=== PATIENT | female | born 1990 | race Caucasian/White ===

== ENCOUNTER → 2021-10-04 12:29 | Outpatient (CLI) | payer OTHER, MEDICAID, SELFPAY ==
[2021-10-04 12:58] LABS: Appearance Urine UA CLOUDY; Bilirubin Urine UA NEGATIVE (NEGATIVE); Color Urine UA YELLOW; Glucose Urine UA NEGATIVE (Negative); Ketones Urine UA NEGATIVE (NEGATIVE); Leukocyte Esterase Urine UA NEGATIVE (NEGATIVE); Nitrite Urine UA NEGATIVE (Negative); Occult Blood Urine UA NEGATIVE (Negative); Protein Urine UA 1+ (Negative); Specific Gravity Urine UA 1.025 (1.000-1.035); Urobilinogen Urine UA 0.2 E.U./dL (0.2)
[2021-10-04 13:00] LABS: Add Manual Diff / Slide Review NO; Basophils Absolute Auto 100 /uL (0-100); Basophils Percent Auto 0.6 % (0-2); Eosinophils Absolute Auto 100 /uL (0-450); Eosinophils Percent Auto 0.7 % (2-4); Hematocrit 35.1 % (36-46); Lymphocytes Absolute Auto 1600 /uL (1100-4500); Lymphocytes Percent Auto 13.5 % (25-40); Mean Corpuscular HGB Conc 34.1 % (30-36); Mean Corpuscular Hemoglobin 28.7 PG (26-34); Mean Corpuscular Volume 84.1 fL (80-100); Monocytes Absolute Auto 500 /uL (0-900); Monocytes Percent Auto 4.7 % (3-14); Neutrophils Absolute Auto 9300 /uL (1500-7000); Neutrophils Percent Auto 80.5 % (50-75); Platelet Count 197 X10^3/uL (150-400); Red Blood Cell Count 4.17 X10^6/uL (4.0-5.2); Red Cell Distribution Width 15.9 % (11.6-14.8); White Blood Cell Count 11.5 X10^3/uL (4.5-11.0); pH Urine UA 6.5 (4.5-8.0)
[2021-10-04 13:58] LABS: Hepatitis B Surface Antigen NEGATIVE s/c (NEGATIVE); Rubella Antibody IgG 41.8 IU/mL (>15)
[2021-10-04 14:15] LABS: HIV 1 & 2 Ab/Ag 4th Gen Combo NEGATIVE (NEGATIVE); Hep C Virus Ab w/Reflex Quant NEGATIVE s/c (NEGATIVE)
[2021-10-05 06:24] LABS: RPR Screen Non Reactive (Non Reactive)
[2021-10-05 07:36] LABS: Varicella IgG Antibody 532 index (Immune >165)
== END ==
PROVIDERS: PCP Nurse Practitioner Family; Referring Provider Specialist; Visit Provider Specialist
DX: Z34.80 Encounter for supervision of other normal pregnancy, unspecified trimester (principal)
CPT/HCPCS: 36415; 80055; 81003; 86787; 86803; 86850; 86900; 86901; 87389

== ENCOUNTER → 2021-11-22 12:19 | Outpatient (CLI) | payer OTHER, MEDICAID, SELFPAY ==
--- NOTE | 2021-11-22 12:20 | DI.US.S_ITS ---
PROCEDURE: US OB >= 14 WEEKS FETUS INDICATIONS: 20 WEEK ANATOMY SCAN OUTSIDE/PRIOR DATING DATA: Last menstrual period (LMP): 06/13/2021 LMP-based estimated date of delivery (AMANDA): 03/20/2022 First dating scan (date and location): 10/04/2021 Estimated date of delivery (AMANDA) from first dating scan: 03/15/2022 The calculations are made using the ultrasound AMANDA of 03/15/2022 TECHNIQUE: Real-time scanning was performed of the fetuses, with image documentation and biometric measurements. Endovaginal scanning: Not performed. COMPARISON: [facility], US, US OB >= 14 WEEKS FETUS, 11/08/2021, 14:37. [facility], US, US OB <= 14 WEEKS FETUS, 10/04/2021, 13:22. FINDINGS: General: An intrauterine twin is present. There appears to be 2 placentas, but findings are not well evaluated due to gestational age and maternal body habitus. Recommend correlation with findings from 1st trimester ultrasounds if available. Maternal cervical canal: 5.5 cm long. Normal lower limit is 2.5 cm. FETUS A: Fetus is located on the maternal right side, and is in vertex presentation. Largest amniotic fluid pocket: 5.0 cm; normal range is 2-8 cm. Placental position is posterior, without previa. heart rate: 136 beats per minute. biometrics: Biparietal diameter: 5.8 cm, 23 weeks 4 days Head circumference: 21.8 cm, 23 weeks 6 days Abdominal circumference: 20 cm, 24 weeks 4 days Femur length: 4.4 cm, 24 weeks 3 days Clinically estimated gestational age: 23 weeks 6 days Composite gestational age from present scan: 24 weeks 1 day Estimated weight and percentile: 695 grams, 69th percentile Anatomic survey: Neuro: Ventricles are normal at less than 10 mm. Cisterna magna is normal at 3-11 mm. Cerebellum is normal in size and morphology. Nuchal skin fold: Normal at less than 6 mm between 14 and 21 weeks gestational age. Face: Nose and lips, facial profile are normal. Spine: No evidence for spina bifida. Heart: 4 chambered heart is present, with normal ventricular outflow tracts. Diaphragm: Diaphragm is intact. Stomach: Left-sided stomach is present. Kidneys: No hydronephrosis. Normal ranges are less than 5 mm in 2nd trimester, less than 7 mm in 3rd trimester. Cord: 3 vessel cord has orthotopic insertion. Bladder: Normal in size. Extremities: All 4 extremities are visualized. FETUS B: Fetus is located on the maternal left side, and is in variable presentation. Largest amniotic fluid pocket: 5.5 cm; normal range is 2-8 cm. Placental position is likely fundal, without previa. heart rate: 140 beats per minute. biometrics: Biparietal diameter: 5.5 cm, 22 weeks 5 days Head circumference: 20.5 cm, 22 weeks 4 days Abdominal circumference: 19.7 cm, 24 weeks 3 days Femur length: 4.3 cm, 23 weeks 6 days Clinically estimated gestational age: 23 weeks 6 days Composite gestational age from present scan: 23 weeks 3 days Estimated weight and percentile: 645 grams, 45th percentile Anatomic survey: Neuro: Ventricles are normal at less than 10 mm. Cisterna magna is normal at 3-11 mm. Cerebellum is normal in size and morphology. Nuchal skin fold: Normal at less than 6 mm between 14 and 21 weeks gestational age. Face: facial profile, nose/lips, and orbits are not well visualized. Spine: No evidence for spina bifida. Heart: Four-chamber heart and ventricular outflow tracts are not well visualized. Diaphragm: Diaphragm is intact. Stomach: Left-sided stomach is present. Kidneys: No hydronephrosis. Normal ranges are less than 5 mm in 2nd trimester, less than 7 mm in 3rd trimester. Cord: 3 vessel cord has orthotopic insertion. Bladder: Normal in size. Extremities: Bilateral lower extremities are not well visualized. Upper extremities appear normal. IMPRESSION: 1. Intrauterine twin . Chorionicity is not well evaluated due to gestational age, but dichorionic diamniotic gestation is suspected. Recommend correlation with first-trimester ultrasound results if available. 2. Anatomic survey for fetus A (maternal right) is within normal limits. 3. Incomplete anatomic survey for fetus B (maternal left). facial profile, nose/lips, heart views, and lower extremities are not well visualized. Recommend short-term follow-up exam. We strive to produce accurate, complete, and clear reports of imaging services. To assist us in improving patient care, this report was composed using standard report templates and voice recognition software. Therefore, it may contain abnormal punctuation, insertions and/or omissions. Occasional wrong-word or sound-alike substitutions may occur. Though we review the report and make efforts to correct it, we do recommend that the report be read carefully in proper context to recognize any text inaccuracies. Dictated by: Edgar Seay M.D. on 11/22/2021 at 16:23 Approved by: Edgar Seay M.D. on 11/22/2021 at 16:35
== END ==
PROVIDERS: PCP Nurse Practitioner Family; Referring Provider Specialist; Visit Provider Specialist
DX: O30.002 Twin pregnancy, unspecified number of placenta and unspecified number of amniotic sacs, second trimester (principal); Z3A.24 24 weeks gestation of pregnancy
CPT/HCPCS: 76811

== ENCOUNTER → 2021-12-17 12:12 | Outpatient (CLI) | payer OTHER, MEDICAID, SELFPAY ==
--- NOTE | 2021-12-17 | DI.US.S_ITS ---
PROCEDURE: US OB FOLLOW UP INDICATIONS: FOLLOW UP ANATOMY - TWINS OUTSIDE/PRIOR DATING DATA: Last menstrual period (LMP): 06/13/2021 LMP-based estimated date of delivery (AMANDA): 03/17/2022 First dating scan (date and location): 10/04/2021 Estimated date of delivery (AMANDA) from first dating scan: 03/15/2022. TECHNIQUE: Real-time scanning was performed of the fetuses, with image documentation and biometric measurements. Endovaginal scanning: Not indicated. COMPARISON: [facility], OB >= 14 WEEKS FETUS, 11/22/2021, 14:06. FINDINGS: General: An intrauterine likely dichorionic-diamniotic twin is present. FETUS A: Fetus is located on the maternal right side, and is in vertex presentation. Largest amniotic fluid pocket: 5 cm, normal is 2-8 cm. Placental position is posterior, without previa. heart rate: 132 beats per minute. biometrics: Biparietal diameter: 6.9 cm, 27 weeks, 5 days Head circumference: 26.1 cm, 28 weeks, 3 days Abdominal circumference: 22.4 cm , 26 weeks, 6 days Femur length: 5.1 cm, 27 weeks, 3 days Clinically estimated gestational age: 27 weeks, 3 days Composite gestational age from present scan: 27 weeks, 4 days Estimated weight and percentile: 1049 g, 31% Four-chamber heart, stomach, bilateral kidneys and urinary bladder are visualized and are within normal limits. FETUS B: Fetus is located on the maternal left side, and is in transverse presentation. Largest amniotic fluid pocket: 3.9 cm, normal is 2-8 cm. Placental position is fundal without previa. heart rate: 132 beats per minute. biometrics: Biparietal diameter: 7.0 cm, 28 weeks, 0 day Head circumference: 25.6 cm, 27 weeks, 6 days Abdominal circumference: 23.3 cm, 27 weeks, 5 days Femur length: 5.1 cm, 27 weeks, 3 days Clinically estimated gestational age: 27 weeks, 3 days Composite gestational age from present scan: 27 weeks, 5 days Estimated weight and percentile: 1105 g, 46%. Four-chamber heart, outflow tracts, stomach, bilateral kidneys, urinary bladder, and bilateral lower extremities are visualized and are within normal limits. facial profile is still not well visualized on the current study. IMPRESSION: 1. Twin live intrauterine gestation as described in detail above. Normal growth. Normal amount of amniotic fluid. 2. Additional anatomic survey for fetus B shows normal four-chamber heart and outflow tract on the current study. Bilateral lower extremities are also visualized and are within normal limits. facial profile is still not well seen on the current study due to patient's body habitus and position. We strive to produce accurate, complete, and clear reports of imaging services. To assist us in improving patient care, this report was composed using standard report templates and voice recognition software. Therefore, it may contain abnormal punctuation, insertions and/or omissions. Occasional wrong-word or sound-alike substitutions may occur. Though we review the report and make efforts to correct it, we do recommend that the report be read carefully in proper context to recognize any text inaccuracies. Dictated by: Mekhi Pinon M.D. on 12/19/2021 at 15:09 Approved by: Mekhi Pinon M.D. on 12/19/2021 at 15:19
[2021-12-17 13:39] LABS: Hemoglobin 11.1 g/dL (12.0-16.0)
[2021-12-17 13:55] LABS: GTT (PREG) 1 Hour PP 50gm Dose 135 mg/dL (76-139)
== END ==
PROVIDERS: PCP Nurse Practitioner Family; Referring Provider Specialist; Visit Provider Specialist
DX: O30.092 Twin pregnancy, unable to determine number of placenta and number of amniotic sacs, second trimester (principal); O09.92 Supervision of high risk pregnancy, unspecified, second trimester; Z36.2 Encounter for other antenatal screening follow-up; Z3A.27 27 weeks gestation of pregnancy
CPT/HCPCS: 36415; 76812; 76816; 82950; 85014; 85018

== ENCOUNTER → 2022-02-11 13:52 | Outpatient (CLI) | payer OTHER, MEDICAID, SELFPAY ==
[2022-02-11 19:48] LABS: Creatinine Urine Random 197.4 mg/dL; Protein (Total) Urine Random 17 mg/dL (0-12); Protein Creatinine Ratio Urine 0.08 GRAM/24H
[2022-02-12 13:32] LABS: Strep Grp B PCR NEG for Grp B Strep
== END ==
PROVIDERS: PCP Nurse Practitioner Family; Visit Provider Obstetrics & Gynecology
DX: O26.899 Other specified pregnancy related conditions, unspecified trimester (principal); O30.009 Twin pregnancy, unspecified number of placenta and unspecified number of amniotic sacs, unspecified trimester; R51.9 Headache, unspecified
CPT/HCPCS: 82570; 84156; 87653

== ENCOUNTER → 2022-02-11 14:16 | Outpatient (CLI) | payer OTHER, MEDICAID, SELFPAY ==
--- NOTE | 2022-02-11 14:18 | DI.US.S_ITS ---
PROCEDURE: US OB LIMITED INDICATIONS: twin growth US OUTSIDE/PRIOR DATING DATA: Last menstrual period (LMP): 06/13/2021 LMP-based estimated date of delivery (AMANDA): 03/20/2022. First dating scan (date and location): 10/04/2021. Estimated date of delivery (AMANDA) from first dating scan: 03/15/2022. The calculations are made using the ultrasound AMANDA of 03/15/2022. TECHNIQUE: Real-time scanning was performed of the fetuses, with image documentation and biometric measurements. COMPARISON: [facility], US, OB FOLLOW UP, 12/17/2021, 15:02. FINDINGS: General: An intrauterine dichorionic-diamniotic twin is present, as evidenced by separate placentas, differing sexes, or an intervening membrane of greater than 2 mm. Maternal cervical canal: Not well seen. FETUS A: Fetus is located on the maternal right side, and is in vertex presentation. Largest amniotic fluid pocket: 5.4 cm, normal is 2-8 cm. Placental position is posterior , without previa. heart rate: 168 beats per minute. biometrics: Biparietal diameter: 34 weeks 1 days Head circumference: 35 weeks 4 days Abdominal circumference: 39 weeks 2 days Femur length: 36 weeks 2 days Clinically estimated gestational age: 35 weeks 3 days Composite gestational age from present scan: 36 weeks 2 days Estimated weight and percentile: 3241 g; 95th percentile FETUS B: Fetus is located on the maternal left side, and is in breech presentation. Largest amniotic fluid pocket: 6.5 cm, normal is 2-8 cm. Placental position is fundal, without previa. heart rate: 140 beats per minute. biometrics: Biparietal diameter: 33 weeks 5 days Head circumference: 35 weeks 5 days Abdominal circumference: 36 weeks 6 days Femur length: 35 weeks 4 days Clinically estimated gestational age: 35 weeks 3 days Composite gestational age from present scan: 35 weeks 3 days Estimated weight and percentile: 2830 g; 67th percentile IMPRESSION: 1. Living twin dichorionic diamniotic redemonstrated. 2. Growth for fetus A is greater than expected with estimated weight 95th percentile and normal growth for fetus B with estimated weight of 67th percentile. Developing macrosomia for fetus A cannot be excluded and close clinical correlation is recommended. We strive to produce accurate, complete, and clear reports of imaging services. To assist us in improving patient care, this report was composed using standard report templates and voice recognition software. Therefore, it may contain abnormal punctuation, insertions and/or omissions. Occasional wrong-word or sound-alike substitutions may occur. Though we review the report and make efforts to correct it, we do recommend that the report be read carefully in proper context to recognize any text inaccuracies. Dictated by: Sean LIMA Interpreted: Helio Mendoza MD on 02/12/2022 at 15:23 Transcribed by: TRISTA on 02/12/2022 at 15:36 Approved by: Helio Mendoza M.D. on 02/12/2022 at 18:33
[2022-02-11 15:17] LABS: Hematocrit 30.1 % (36-46); Hemoglobin 9.9 g/dL (12.0-16.0); Mean Corpuscular Hemoglobin 24.7 PG (26-34); Platelet Count 167 X10^3/uL (150-400); Red Blood Cell Count 4.01 X10^6/uL (4.0-5.2); Red Cell Distribution Width 17.2 % (11.6-14.8); White Blood Cell Count 8.5 X10^3/uL (4.5-11.0)
[2022-02-11 15:39] LABS: Alanine Aminotransferase 13 IU/L (<35); Albumin 3.2 g/dL (3.5-5.0); Albumin Globulin Ratio 1.1 (1.0-2.8); Alkaline Phosphatase 166 U/L (38-126); Aspartate Aminotransferase 17 IU/L (14-36); BUN Creatinine Ratio 14.8 (6-22); Bilirubin Total 0.2 mg/dL (0.2-1.3); Blood Urea Nitrogen 8 mg/dL (7-17); Calcium 8.7 mg/dL (8.4-10.2); Carbon Dioxide 22 mmol/L (22-32); Chloride 107 mmol/L (98-107); Estimated Glomerular Filt Rate > 60 mL/min (>60); Glucose 118 mg/dL (70-100); HEMOLYSIS < 15 (0-50); Potassium 3.8 mmol/L (3.4-5.1); Sodium 135 mmol/L (137-145); Total Protein 6.2 g/dL (6.3-8.2); Uric Acid 5.5 mg/dL (2.5-6.2)
== END ==
PROVIDERS: PCP Nurse Practitioner Family; Referring Provider Obstetrics & Gynecology; Visit Provider Obstetrics & Gynecology
DX: O30.043 Twin pregnancy, dichorionic/diamniotic, third trimester (principal); O26.893 Other specified pregnancy related conditions, third trimester; R51.9 Headache, unspecified; Z3A.36 36 weeks gestation of pregnancy
CPT/HCPCS: 36415; 76815; 80053; 84550; 85027

== ENCOUNTER 2022-02-11 15:24 | Outpatient (CLI) | payer OTHER, MEDICAID, SELFPAY ==
--- NOTE | 2022-02-11 20:39 | PM.OBTRLD ---
Visit Information Visit Information Date of evaluation: 02/11/22 Primary OB Provider: Tatyana Sullivan On-call OB Provider: Tatyana Sullivan Reason for Evaluation: Yes non-stress test Comments/Additional reasons for admission: NSTx2 for twin gestation at 34 weeks. Unclear chorionicity, mono chorionic, diamniotic verses dichorionic, diamniotic. evaluate for contractions as well. Cramping, episodes of contractions past 2 days, feels increased contractions today. BP normal for her in office 132/84. Significant pedal edema in the office. Sent for preeclamptic labs prior to her scheduled NST. [facility] Medical History (Updated 01/28/22 @ 21:11 by Ttayana Sullivan MD) Anxiety Chronic back pain Depression History of bipolar disorder History of methamphetamine abuse Migraines PTSD (post-traumatic stress disorder) Twin , mate liveborn Surgical History (Updated 11/07/21 @ 22:21 by Raissa العلي) Anesthesia History of oral surgery (~10/26/15) Family History (Updated 11/07/21 @ 22:23 by Raissa العلي) Father Diabetes mellitus Hyperlipidemia Cancer Mental health problem Brother Cerebral palsy Social History (Updated 09/30/21 @ 07:17 by Yulissa Aldrich RN) marital status: unmarried,single number of children: 3 household members: significant other and children housing: other (RV ) pets and animals: Yes (1 dog) education level: college occupational status: unemployed current occupational exposures/hazards: No nelsy/yarsanism: Jainism special nelsy needs: No seatbelt use: always water heater temp set < 120 deg: No (unsure, has to let water heat up in the RV ) working smoke detector in home: Yes fire extinguisher in home: Yes carbon monox detector in home: Yes firearms in home: Yes (2, unloaded and locked) firearms unloaded and locked: Yes do you feel safe at home: Yes Smoking Status: Current every day smoker (cut down to 1-2 day) Tobacco: How many years used: 10 quit status: considering quitting second hand exposure: Yes alcohol intake: former substance use type: marijuana (eat CBD/THC edibles ) and methamphetamine (recovering meth user, quit 4yrs ago) during the past year weight has: increased > 10 lbs (25-30 lbs) well-balanced diet: about half the time daily servings fruits/ve-1 caffeine: Yes (aware of 200mg daily limit) eating out: rarely or never Type(s) of exercise: walking (trying to walk more) and sedentary lifestyle frequency: 1-2 times per week Evaluation Evaluation Comments: Baby A FHR baseline 135-145, moderate variability, positive accelerations, no decelerations. reactive NST Baby B FHR baseline 135 moderate variability, positive accelerations, no decelerations. Reactive NST toco: No contractions Diagnosis, Plan/Disposition Plan/Disposition Plan: 34 weeks, twin gestation, probable monochorionic, diamniotic versus dichorionic, diamniotic Reactive NST x2, reassuring testing Growth ultrasound today pending Mild elevated BP, without diagnosis of hypertension. Suspect developing gestational hypertension however. Urine protein / creatinine ratio pending. Preeclamptic labs otherwise normal. Hemoglobin 9.9, advised add Additional iron daily. Discharge home to continue with weekly testing, travels by [place] weekly. Advised increased sitting, rest off feet. Will move her up to 37 weeks. OB Disposition: home
== END 2022-02-11 16:52 | disposition home or self-care (01) ==
LOC: LABOR 15:43 → OB 02-13 07:23
PROVIDERS: PCP Nurse Practitioner Family; Referring Provider Obstetrics & Gynecology; Visit Provider Obstetrics & Gynecology
DX: O30.043 Twin pregnancy, dichorionic/diamniotic, third trimester (principal); O26.893 Other specified pregnancy related conditions, third trimester; R03.0 Elevated blood-pressure reading, without diagnosis of hypertension; R51.9 Headache, unspecified; Z3A.36 36 weeks gestation of pregnancy; Z3A.35 35 weeks gestation of pregnancy
CPT/HCPCS: 36415; 59025; 76815; 80053; 82570; 84156; 84550; 85027; 87653; G0378; G0379

== ENCOUNTER 2022-02-18 13:58 | Observation (INO) | payer OTHER, MEDICAID, SELFPAY ==
--- NOTE | 2022-02-18 15:24 | DI.US.S_ITS ---
PROCEDURE: US OB LIMITED INDICATIONS: ALLEN OUTSIDE/PRIOR DATING DATA: Last menstrual period (LMP): 06/13/21. LMP-based estimated date of delivery (AMANDA): 03/20/22. First dating scan (date and location): 10/04/21, outside institution. Estimated date of delivery (AMANDA) from first dating scan: 03/15/22. The calculations are made using the established AMANDA of 03/15/22. TECHNIQUE: Real-time scanning was performed of the fetuses, with image documentation Endovaginal scanning: Not performed COMPARISON: [facility], US OB LIMITED, 02/11/2022, 14:49. FINDINGS: Challenging exam secondary to maternal body habitus. General: An intrauterine dichorionic-diamniotic twin is present, as evidenced by separate placentas, differing sexes, or an intervening membrane of greater than 2 mm. Composite amniotic fluid index: Possibly 19.1 cm. Maternal cervical canal: Not well seen due to shadowing from the head FETUS A: Fetus is located on the maternal right side, and is in cephalic presentation. Largest amniotic fluid pocket: 4.0 cm, normal is 2-8 cm. Placental position is not well seen heart rate: 127 beats per minute. FETUS B: Fetus is located on the maternal left side, and is in oblique transverse presentation. Largest amniotic fluid pocket: 5.1 cm, normal is 2-8 cm. Placental position is fundal and posterior, without previa. heart rate: 145 beats per minute. IMPRESSION: 1. Limited study secondary to technical challenges. 2. Viable twin . 3. Grossly normal amount of amniotic fluid. We strive to produce accurate, complete, and clear reports of imaging services. To assist us in improving patient care, this report was composed using standard report templates and voice recognition software. Therefore, it may contain abnormal punctuation, insertions and/or omissions. Occasional wrong-word or sound-alike substitutions may occur. Though we review the report and make efforts to correct it, we do recommend that the report be read carefully in proper context to recognize any text inaccuracies. Dictated by: Maine Goins M.D. on 02/18/2022 at 17:11 Approved by: Maine Goins M.D. on 02/18/2022 at 17:18
--- NOTE | 2022-02-18 15:28 | DI.US.S_ITS ---
PROCEDURE: US PERIPH VENOUS LOW EXTREM RT INDICATIONS: r/o clot in right leg TECHNIQUE: Real-time imaging, as well as color and pulse Doppler interrogation, were performed of the lower extremity deep veins from the inguinal ligament to the popliteal fossa. COMPARISON: None. FINDINGS: The common femoral, femoral and popliteal veins are normally compressible, and free of intraluminal thrombus. Color and pulse Doppler demonstrate normal phasic intraluminal flow. There is normal augmentation response to distal compression maneuver. IMPRESSION: No sonographic evidence of DVT. Dictated by: Mariusz Peacock M.D. on 02/18/2022 at 16:33 Approved by: Mariusz Peacock M.D. on 02/18/2022 at 16:33
[2022-02-18 15:48] LABS: Hematocrit 28.8 % (36-46); Hemoglobin 9.5 g/dL (12.0-16.0); Mean Corpuscular HGB Conc 32.9 % (30-36); Mean Corpuscular Hemoglobin 24.6 PG (26-34); Mean Corpuscular Volume 74.5 fL (80-100); Platelet Count 157 X10^3/uL (150-400); Red Blood Cell Count 3.86 X10^6/uL (4.0-5.2); Red Cell Distribution Width 17.4 % (11.6-14.8); White Blood Cell Count 8.2 X10^3/uL (4.5-11.0)
[2022-02-18 16:08] LABS: Alanine Aminotransferase 13 IU/L (<35); Albumin 3.1 g/dL (3.5-5.0); Alkaline Phosphatase 166 U/L (38-126); Aspartate Aminotransferase 17 IU/L (14-36); BUN Creatinine Ratio 12.5 (6-22); Bilirubin Total 0.3 mg/dL (0.2-1.3); Blood Urea Nitrogen 7 mg/dL (7-17); Calcium 8.5 mg/dL (8.4-10.2); Carbon Dioxide 24 mmol/L (22-32); Chloride 108 mmol/L (98-107); Estimated Glomerular Filt Rate > 60 mL/min (>60); Globulin 3.2 g/dL (1.7-4.1); Glucose 86 mg/dL (70-100); HEMOLYSIS < 15 (0-50); Potassium 3.9 mmol/L (3.4-5.1); Sodium 137 mmol/L (137-145); Total Protein 6.3 g/dL (6.3-8.2)
== END 2022-02-18 16:26 | disposition home or self-care (01) ==
PROVIDERS: Admitting Provider Obstetrics & Gynecology; PCP Nurse Practitioner Family; Referring Provider Obstetrics & Gynecology; Visit Provider Obstetrics & Gynecology
DX: O30.003 Twin pregnancy, unspecified number of placenta and unspecified number of amniotic sacs, third trimester (principal); O13.3 Gestational [pregnancy-induced] hypertension without significant proteinuria, third trimester; O99.213 Obesity complicating pregnancy, third trimester; O12.03 Gestational edema, third trimester; E66.9 Obesity, unspecified; Z3A.35 35 weeks gestation of pregnancy
CPT/HCPCS: 59025; 76815; 80053; 82570; 84156; 85027; 93971; G0378; G0379

== ENCOUNTER → 2022-02-18 14:05 | Outpatient (CLI) | payer OTHER, MEDICAID, SELFPAY ==
[2022-02-18 17:02] LABS: Creatinine Urine Random 49.5 mg/dL; Protein (Total) Urine Random 13 mg/dL (0-12); Protein Creatinine Ratio Urine 0.26 GRAM/24H
== END ==
PROVIDERS: PCP Nurse Practitioner Family; Visit Provider Obstetrics & Gynecology
DX: O30.003 Twin pregnancy, unspecified number of placenta and unspecified number of amniotic sacs, third trimester (principal); O16.9 Unspecified maternal hypertension, unspecified trimester
CPT/HCPCS: 82570; 84156

== ENCOUNTER 2022-02-26 10:42 | Inpatient (IN) | payer OTHER, MEDICAID, SELFPAY ==
--- NOTE | 2022-02-26 | PATH_ITS ---
[facility] Accession Number: [id number] . 01 Material submitted: . PART A: fallopian tube - SEGMENTS OF BOTH FALLOPIAN TUBES PART B: placenta - PLACENTAS . 01 Clinical history: . PLACENTA FROM TWINS, BABY A HAS 1 CLAMP BABY B HAS 2 CLAMPS ON CORD . 01 Diagnosis: A. Bilateral Fallopian Tubes, Bilateral Tubal Ligation: Two complete cross-sections of fallopian tube. No evidence of neoplasm. . B. Placenta: Fused diamnionic-monochorionic twin placenta (1059 grams trimmed) with the following: . Twin A: Three vessel umbilical cord with no evidence of funisitis. membranes with scattered meconium-laden macrophages; no evidence of chorioamnionitis. Villous maturity appropriate for term gestation. . Twin B: Three vessel umbilical cord with no evidence of funisitis. membranes with scattered meconium-laden macrophages; no evidence of chorioamnionitis. Villous maturity appropriate for term gestation. [facility] 03/03/2022 1624 Local . 01 Electronically signed: . Compa Dean MD, PhD, Pathologist NPI- [id number] . 01 Gross description: . A. Received in formalin labeled with the patient's name and fallopian tube segments and consists of two penaloza, tubular, soft tissue fragments. The first measures 1.3 cm in length and 0.6 cm in diameter, has smooth penaloza serosa with no cystic structures identified, and the external surface is differentially inked blue. The second fragment measures 1.1 cm in length and 0.5 cm in diameter, and has smooth serosa with no cystic structures identified. Both fragments are serially sectioned to reveal an unremarkable stellate lumen. The specimen is submitted entirely in cassette A1. B. Received in formalin labeled with the patient's name and twin placenta with two cords, and consists of a partially fused twin placenta weighing 1216 grams (untrimmed weight), and measuring 28.2 x 17.5 x 3.4 cm. The dividing membranes are located diagonally approximately 6 cm on to the surface of side B. There is a single attached plastic clamp designating umbilical cord A, and two attached plastic clamps designating umbilical cord B per the requisition. The fused twin placenta has an ovoid appearance and cord A is located 2.2 cm from the nearest margin. Cord A in white measures 28.2 cm in length and has an average diameter of 1.1 cm, and is penaloza-white with a normal leftward coil, with an index of two twists per 5 cm. Cord A is sectioned and has trivascular architecture on cut surfaces. The external membranes surrounding side A are penaloza and translucent with no areas of thickening identified, and are ruptured 5.1 cm from the nearest margin. The dividing membranes are penaloza and translucent with no areas of thickening. Umbilical cord B measures 3.4 cm from the nearest placental edge, measures 24.1 cm in length and 1 cm in average diameter. The cord is penaloza-white and has a normal leftward coil with 1.5 twists per 5 cm. Sectioning the cord reveals trivascular architecture. The membranes for side B are penaloza and translucent and diffusely ruptured at the margins. No areas of thickening are identified. All external membranes insert at the placental margin. The placenta minus the external membranes and umbilical cord weighs 1059 grams. The surfaces are blue-guerrero with few small vessels (0.2 cm in greatest diameter) and appear to cross the dividing membrane. Multiple pale areas are located on the central surface of placenta A occupying approximately 10% of the surface, while the surface of placenta B has no areas of discoloration. The entire maternal surface is complete, dark red, and lobulated with areas of penaloza, firm discoloration located centrally on placenta A and occupying 10% of the maternal surface, and located at the fusion point between the two placentas. Placenta B has no areas of discoloration on the maternal surface. Sectioning reveals a dark red, spongy cut surface with penaloza discoloration located only within the area of fusion between the two placentas. No additional discoloration or lesions are identified. Lathe Mechanic sections are submitted as follows: B1: Dividing membrane with T zone. B2: Twin A cord. B3: Twin A membrane roll. B4: Twin A full thickness central section to include and maternal surfaces colorations. B5: Twin B umbilical cord. B6: Twin B membrane roll. B7: Twin B full thickness composite section. B8: Full thickness section from area of fused discs. ([id number]) /ELINA 02/27/2022 1907 Local . 01 Pathologist provided ICD-10: Z30.2, O30.009 . 01 CPT . 566217, [id number] Specimen Comment: A courtesy copy of this report has been sent to [facility] Pathology Performed at: 01 [facility] [address], [place], [place] [id number] MD Juan Esqueda MD Phone: [phone]
[2022-02-26 10:47] VITALS: BP 151/68
--- NOTE | 2022-02-26 11:13 | SUR.OPER ---
Supine on Padded OR bed, head on pillow, safety belt at thigh, arms secured on padded arm boards at <90 degrees abduction. Bump under right buttock. Legs uncrossed with pillow under knees, gel pad to heels, tape over blanket to lower legs.
[2022-02-26 11:23] LABS: Add Manual Diff / Slide Review NO; Basophils Absolute Auto 100 /uL (0-100); Basophils Percent Auto 0.9 % (0-2); Eosinophils Absolute Auto 100 /uL (0-450); Eosinophils Percent Auto 0.8 % (2-4); Lymphocytes Absolute Auto 1300 /uL (1100-4500); Lymphocytes Percent Auto 13.5 % (25-40); Mean Corpuscular HGB Conc 32.2 % (30-36); Mean Corpuscular Volume 74.5 fL (80-100); Monocytes Absolute Auto 600 /uL (0-900); Monocytes Percent Auto 5.9 % (3-14); Neutrophils Absolute Auto 7900 /uL (1500-7000); Neutrophils Percent Auto 78.9 % (50-75); Platelet Count 173 X10^3/uL (150-400); Red Blood Cell Count 4.16 X10^6/uL (4.0-5.2); Red Cell Distribution Width 18.2 % (11.6-14.8)
[2022-02-26 11:29] LABS: Aspartate Aminotransferase 18 IU/L (14-36); BUN Creatinine Ratio 11.9 (6-22); Blood Urea Nitrogen 7 mg/dL (7-17); Estimated Glomerular Filt Rate > 60 mL/min (>60); Uric Acid 5.9 mg/dL (2.5-6.2)
--- NOTE | 2022-02-26 11:34 | P.HPOB_ITS ---
OB HPI Date/Time Date of admission: 02/26/22 Date Patient Seen: 02/26/22 Time Patient Seen: 11:20 History of Present Condition Chief complaint: : 3 Para: 3 Estimated Date of Delivery: 03/20/22 Estimated Gestational Age (weeks): 37 Narrative: Alyce Carter is a 31 year old female with a known twin , mono chorionic, diamniotic verses dichorionic, diamniotic, who presents at 37 weeks in active labor. She was scheduled for a primary section tomorrow due to 2nd baby being breech presentation and in reviewing options, patient desired to proceed with section for delivery. She also desired sterilization by way of tubal ligation with the . has been complicated by gestational hypertension the past 3 weeks, and severe lower extremity edema, appears impending preeclampsia. Preeclamptic labs were normal including protein urine creatinine ratio, though this was approaching preeclampsia levels. Yesterday her BP was elevated a little higher at 156/86. She reports development of a mild headache last night. Denies vision changes, nausea or upper abdominal pain. She is feeling uncomfortable contractions. No leakage of fluid or vaginal bleeding. Familia necessity of was never identified due to later presentation at 16 weeks. MFM consult obtained in 3rd trimester and due to same gender and only placenta seen anteriorly, they felt it was monochorionic. Ultrasounds here, they feel that he see a posterior placenta as well and are feeling this is dichorionic. Due to both a gestational hypertension a possible monochorionic , she was scheduled for delivery at 37 weeks. Indications Indication for induction OB: gestational HTN/pre-eclampsia [facility] Medical History (Updated 02/18/22 @ 23:11 by Tatyana Sullivan MD) Anxiety Chronic back pain Depression History of bipolar disorder History of methamphetamine abuse Migraines PTSD (post-traumatic stress disorder) Twin , mate liveborn Surgical History (Updated 11/07/21 @ 22:21 by Raissa العلي) Anesthesia History of oral surgery (~10/26/15) Family History (Updated 11/07/21 @ 22:23 by Raissa العلي) Father Diabetes mellitus Hyperlipidemia Cancer Mental health problem Brother Cerebral palsy Social History (Updated 09/30/21 @ 07:17 by Yulissa Aldrich RN) marital status: unmarried,single number of children: 3 household members: significant other and children housing: other (RV ) pets and animals: Yes (1 dog) education level: college occupational status: unemployed current occupational exposures/hazards: No nelsy/jewish: Anglican special nelsy needs: No seatbelt use: always water heater temp set < 120 deg: No (unsure, has to let water heat up in the RV ) working smoke detector in home: Yes fire extinguisher in home: Yes carbon monox detector in home: Yes firearms in home: Yes (2, unloaded and locked) firearms unloaded and locked: Yes do you feel safe at home: Yes Smoking Status: Current every day smoker (cut down to 1-2 day) Tobacco: How many years used: 10 quit status: considering quitting second hand exposure: Yes alcohol intake: former substance use type: marijuana (eat CBD/THC edibles ) and methamphetamine (recovering meth user, quit 4yrs ago) during the past year weight has: increased > 10 lbs (25-30 lbs) well-balanced diet: about half the time daily servings fruits/ve-1 caffeine: Yes (aware of 200mg daily limit) eating out: rarely or never Type(s) of exercise: walking (trying to walk more) and sedentary lifestyle frequency: 1-2 times per week Meds Home Medications and Allergies Home Medications Medication Instructions Recorded Confirmed Type nicotine 21 mg/24 hr daily 1 patch transdermal DAILY 09/30/21 02/18/22 History transdermal patch prenat.vits,amy,[id number] 1 tab PO DAILY 09/30/21 02/18/22 History Allergies Allergy/AdvReac Type Severity Reaction Status Date / Time Penicillins Allergy Mild Rash Verified 02/18/22 13:19 OB Exam Narrative Exam Narrative: General: Appears uncomfortable with contractions Abdomen: Gravid, no right upper quadrant or epigastric tenderness. No uterine tenderness between contractions Extremities right lower extremity with 3+ pedal edema to her knee, left lower extremity with 1 to 2+ edema. DTR: 1 to 2+ patellar reflex, no clonus HENMT Head: normocephalic Resp Effort & Inspection: normal respiratory effort Cardio Rate: regular rate Extremities Lower extremity: Yes edema DTR's: Rt Patellar: 2+ Other: EFM category 1 for both babies, normal baseline. Both babies reactive. [place]: Talya every few minutes Cervical exam by RN 5 cm Bedside ultrasound by me shows baby a is vertex presentation. Objective Labs Result Diagrams: 02/26/22 11:00 02/26/22 11:00 Labs: Laboratory Results - last 24 hr 02/26/22 02/26/22 02/26/22 11:00 11:00 11:00 WBC Cancelled 10.0 RBC Cancelled 4.16 Hgb Cancelled 10.0 L Hct Cancelled 31.0 L MCV Cancelled 74.5 L MCH Cancelled 24.0 L MCHC Cancelled 32.2 RDW Cancelled 18.2 H Plt Count Cancelled 173 Neut % (Auto) Cancelled 78.9 H Lymph % (Auto) Cancelled 13.5 L [place] % (Auto) Cancelled 5.9 Eos % (Auto) Cancelled 0.8 L Baso % (Auto) Cancelled 0.9 Neut # (Auto) Cancelled 7900 H Lymph # (Auto) Cancelled 1300 [place] # (Auto) Cancelled 600 Eos # (Auto) Cancelled 100 Baso # (Auto) Cancelled 100 BUN 7 Creatinine 0.59 Estimated GFR > 60 BUN/Creatinine Ratio 11.9 Uric Acid 5.9 AST 18 Assessment and Plan Assessment and Plan Assessment and Plan narrative: Twin , probable monochorionic, diamniotic at 37 weeks 5 days, active labor. GBS negative Desires tubal ligation for sterilization, confirms this. Reviewed section and tubal ligation procedure. Discuss risks of surgery including bleeding, infection, injury to internal organs including bladder, urinary system, bowel and risk of injury to the babies with delivery or making incision. Increased risk of tubal , ectopic with tubal ligation discussed. Verbal and written consent obtained. OR and anesthesia is notified. Patient will be transferred to OR shortly. Clindamycin for prophylaxis since she reports throat closing with penicillin.
[2022-02-26 11:38] LABS: COVID19 -Nasal RAPID Negative (Negative)
[2022-02-26] MEDS: CLINDAMYCIN 900 MG/50 ML PIGGYBACK 50 MG IV (11:55)
[2022-02-26] MEDS: ACETAMINOPHEN IV 1,000 MG/100 ML VIAL 400 MG IV (12:00)
--- NOTE | 2022-02-26 12:54 | SUR.OPER ---
BABY A BOY BORN AT 1224 AND BABY B BORN AT 1226
--- NOTE | 2022-02-26 13:15 | P.OP_ITS ---
Operative Date/Time/Diagnoses Date of procedure: 02/26/22 Time of procedure: 12:30 Pre-op diagnosis: 1.37 week twin , vertex/breech presentation, labor 2.Desires female sterilization 3 Gestational hypertension Post-op diagnosis: same Procedure & Clinicians Procedure: Primary lower transverse section and bilateral tubal ligation Same procedure as scheduled: Yes Indications: 31 yo female at 37+ weeks with a known twin gestation and gestational hypertesnsion, presents the day prior to her scheduled section in active labor at 5 cm dilated. Second twin has been persistent breech presentation and discussion on options for mode of delivery, vaginal with attempted ECV of 2nd twin if he does not descend vertex verses section was held. Patient desired to proceed with a scheduled . She also desired tubal ligation for sterilization at the time of . Currently in labor she confirms that she desires to proceed with section for delivery and confirms desire for the tubal ligation and she was taken for primary section and tubal ligation. Due to presentation in early 2nd trimester, it has been unclear whether she has monochorionic or dichorionic twins, monochorionic diamniotic or dichorionic diamniotic. Surgeon: Tatyana Sullivan [employer] Manager: Abbey Swann Anesthesia Type: Spinal Operative Notes Findings: Baby A, a viable male delivered at 12:24pm, weighing 3486 gm. Apgars 9 and 9 Baby B,a viable male delivered at 12:26 p.m., weighing 3197 g. Apgars 8 and 9 On inspection of the placenta there appeared to be to separate placentas with the dividing membrane. There was a small connection between the 2 placentas with branching blood vessels from baby B's placenta going to baby A's placenta. Baby a placenta had a marginal cord insertion. Await pathologist inspection as well regarding whether 1 or 2 separate placentas. Normal maternal uterus, tubes and ovaries. Closure Type: primary Specimen(s): other (1.placenta to pathology, Baby A's cord marked with 1 cord clamp, Baby B marked with 2 clamps. 2. excised segments of right and left fallopian tube 3. cord blood x2 to lab) Estimated Blood Loss (mL): 600 Blood products transfused: none Procedure in detail: IV fluids: 2800 ml crystalloid Description of procedure: She was transferred from the center to the operating room. After an adequate level of spinal anesthesia was obtained, she was placed in the supine position. Repeat cervical exam revealed the cervix to be 6 cm dilated, vertex high. Johnson catheter was placed. A trexi abdominal retractor was plac ed. She was prepped and draped in routine sterile fashion. A Pfannenstiel skin incision was made in the lower abdomen and carried down to the level of the fascia. The fascia was incised in the midline and extended transversely. The superior and inferior edges of the fascia were elevated and dissected off the rectus muscles with sharp and bovie dissection. The muscles were bluntly split in the midline. The parietal peritoneum was elevated, incised and extended bluntly. An Tyler retractor was placed. Two moist laparotomy sponges were placed to hold back some omentum. The visceral peritoneum was elevated off the lower uterus, incised and the bladder flap was bluntly created. A bladder blade retractor was placed. A transverse incision was made in the lower uterus with final entry being bluntly. The uterine incision was extended transversely with blunt dissection. The amniotic sac of baby A was ruptured, revealing clear fluid. The head was elevated to the uterine incision and delivered through the incision without difficulty, followed by the remainder of the body. No nuchal cord was present. Cord was clamped and cut, the appeared vigorous, crying spontaneously and was handed off to the family [facility] doctor in attendance for baby care. Infant B was in the breech position. Feet were grasped. The amniotic sac was ruptured for clear fluid. The feet and body delivered with ease, delivered up to the 's chest. The was placed left shoulder anterior and with gentle pressure on the humerus the left arm easily delivered. The infant was turned back to right shoulder anterior and likewise with gentle pressure on the humerus the right arm was delivered with ease. The baby was placed back to spine anterior, the body was elevated and the head was gently flexed through the uterine incision with gentle pressure with a finger in the 's mouth and baby B was delivered. Some fluid was suctioned with the bulb from the infant's mouth, hand the was wiped. The infant became vigorous.. Cord was clamped and cut and the infant was handed off to the baby dr and respiratory therapy who was present for delivery. Cord blood was obtaine d a specimen from both umbilical cords. The umbilical cord from baby a was marked with 1 plastic cord clamp. The cord from baby B was marked with 2 cord clamps.. The placenta was manually removed. It appeared intact. Additional inspection was made after the surgery, with the above-noted findings. The uterus was swept clean of adherent clots and membranes. The uterus was closed in 1 layers with 0 Vicryl. Hemostasis was noted. The uterus was brought through the abdominal incision. The tubes and ovaries were inspected and noted to be normal. Attention was then placed to the fallopian tubes for tubal ligation for sterilization. The left fallopian tube was grasped in the mid isthmic portion and elevated. A free tie of 0 plain suture was placed at the base of the elevated tube to tie off a blind loop of tube in an area where the mesosalpinx was avascular. A clear space was then developed in the mesosalpinx of the blind loop and a free tie of 0 plain suture was placed through the mesosalpinx and tied down around 1 side of the tube at the base. A 2nd free tie of 0 plain suture was placed and tied down on the other side of the loop of tube at the base, to thus doubly ligate each side of of fallopian tube. The tube was then excised and handed off the specimen. The tubal ostia was coagulated. Inspection revealed good hemostasis. Attention was placed to the right fallopia n tube which was elevated in the mid isthmic portion with [place] and tubal ligation was performed in identical fashion on this side. After excising the portion of fallopian tube, it was handed off as specimen as well. The tubal ostia were coagulated with the Bovie. Good hemostasis noted. The uterus was placed back into the maternal abdomen. The paracolic gutters were inspected and wiped of some minimal blood and fluid. The anterior cul-de-sac was inspected and some clot and fluid was removed. The uterine incision was re- inspected and good hemostasis was noted. The pelvis was irrigated. Repeat inspection showed continued hemostasis. The abdomen was closed. The bladder flap peritoneum was reapproximated with 2 0 Vicryl. The parietal peritoneum was closed with running suture of 2-0 Vicryl. The fascia was closed with running suture of 0 Vicryl using 2 lengths, meeting in the midline. The subcutaneous tissue was reapproximated by reapproximating Nicole's fascia with running 2 0 Vicryl. The skin was closed with a subcuticular suture of 4 0 Monocryl. Steri-Strips and sterile Aquacel dressing was placed. She tolerated the procedure well and went to the recovery room in stable condition. Post-operative Condition: stable Disposition: PACU Plan for aftercare: Transferred from the recover room to the birthing center for routine post section, care
[2022-02-26 13:40] VITALS: BP 131/93; PULSE 103; RESP 16; TEMP 36.6; O2SAT 100
[2022-02-26 13:44] VITALS: BP 139/95; PULSE 99; RESP 15; O2SAT 98
[2022-02-26 13:49] VITALS: BP 147/93; PULSE 101; RESP 14; O2SAT 99
[2022-02-26 13:55] VITALS: BP 147/91; PULSE 94; RESP 12; TEMP 36.2; O2SAT 99
[2022-02-26] MEDS: KETOROLAC 30 MG/ML VIAL IV ×2 (13:57→20:14)
[2022-02-26 14:00] VITALS: BP 140/92; PULSE 95; RESP 16; TEMP 36.2; O2SAT 98
--- NOTE | 2022-02-26 14:17 | SUR.PHASEI ---
1410 Pt transferred to room 5 in bed. SBAR report at bedside to Gabriela RN with fundal and maikol-pad check. Pt partner at bedside.
[2022-02-26] MEDS: ONDANSETRON 4 MG/2 ML INJ IV (14:38)
[2022-02-26 15:29] LABS: Creatinine Urine Random 261.1 mg/dL; Protein (Total) Urine Random 43 mg/dL (0-12); Protein Creatinine Ratio Urine 0.16 GRAM/24H
[2022-02-26] MEDS: METOCLOPRAMIDE 10 MG/2 ML INJ IV (15:47)
[2022-02-26] MEDS: PROMETHAZINE 25 MG SUPP PR (17:34)
[2022-02-26 17:43] LABS: Add Manual Diff / Slide Review NO; Basophils Absolute Auto 0 /uL (0-100); Basophils Percent Auto 0.2 % (0-2); Eosinophils Absolute Auto 0 /uL (0-450); Eosinophils Percent Auto 0.1 % (2-4); Hematocrit 27.1 % (36-46); Hemoglobin 8.8 g/dL (12.0-16.0); Lymphocytes Absolute Auto 1000 /uL (1100-4500); Lymphocytes Percent Auto 5.6 % (25-40); Mean Corpuscular HGB Conc 32.4 % (30-36); Mean Corpuscular Hemoglobin 24.2 PG (26-34); Mean Corpuscular Volume 74.6 fL (80-100); Monocytes Absolute Auto 800 /uL (0-900); Monocytes Percent Auto 4.4 % (3-14); Neutrophils Absolute Auto 15400 /uL (1500-7000); Neutrophils Percent Auto 89.7 % (50-75); Platelet Count 165 X10^3/uL (150-400); Red Blood Cell Count 3.64 X10^6/uL (4.0-5.2); Red Cell Distribution Width 17.8 % (11.6-14.8); White Blood Cell Count 17.2 X10^3/uL (4.5-11.0)
[2022-02-26 19:41] LABS: UR Morphine/Opiate cutoff 300 Negative (Negative); Ur Creatinine Normal (Normal); Ur Specific Gravity Normal (Normal); Urine Amphetamines Negative (Negative); Urine Barbiturates Negative (Negative); Urine Benzodiazepines Negative (Negative); Urine Cocaine Negative (Negative); Urine MDMA Negative (Negative); Urine Methadone Negative (Negative); Urine Methamphetamines Negative (Negative); Urine Oxycodone Negative (Negative); Urine Phencyclidine Negative (Negative); Urine Tetrahydrocannabinol Positive (Negative); Urine Tricyclic Antidepressant Negative (Negative); Urine pH Normal (Normal)
[2022-02-27] MEDS: ACETAMINOPHEN 325 MG TABLET 650 MG PO ×2 (03:41→09:39)
[2022-02-27] MEDS: KETOROLAC 30 MG/ML VIAL IV ×2 (03:42→11:48)
[2022-02-27 06:57] LABS: Alanine Aminotransferase 15 IU/L (<35); Albumin 2.7 g/dL (3.5-5.0); Alkaline Phosphatase 130 U/L (38-126); Aspartate Aminotransferase 26 IU/L (14-36); BUN Creatinine Ratio 15.1 (6-22); Bilirubin Total 0.3 mg/dL (0.2-1.3); Blood Urea Nitrogen 11 mg/dL (7-17); Calcium 8.3 mg/dL (8.4-10.2); Carbon Dioxide 23 mmol/L (22-32); Chloride 103 mmol/L (98-107); Estimated Glomerular Filt Rate > 60 mL/min (>60); Globulin 2.7 g/dL (1.7-4.1); Glucose 131 mg/dL (70-100); HEMOLYSIS < 15 (0-50); Potassium 4.1 mmol/L (3.4-5.1); Sodium 132 mmol/L (137-145); Total Protein 5.4 g/dL (6.3-8.2)
[2022-02-27] MEDS: DOCUSATE 100 MG CAPSULE 200 MG PO (09:39)
[2022-02-27] MEDS: FERROUS SULFATE 325 MG TABLET PO (09:39)
[2022-02-27] MEDS: ENOXAPARIN 40 MG/0.4 ML SYRINGE SUBCUT ×2 (10:06→21:09)
[2022-02-27] MEDS: diphenhydrAMINE 50 MG/ML VIAL 25 MG IV (12:43)
--- NOTE | 2022-02-27 13:53 | P.PNOB_ITS ---
Subjective - OB Subjective Patient comments: incisional pain (Having some back pain may and incisional pain, now less adequate relief with Tylenol.), tolerating diet, flatus present and other (lochia normal) baby status: doing well (x2) [place] feeding status: exclusively bottle feeding Narrative: She reports she does have a mild headache this morning. No scotomata, upper abdominal pain or nausea. She did have some prolonged nausea after the C- section yesterday, persisted after Zofran and right gland. It then resolved after promethazine. No nausea today. Tolerating regular diet. Passing flatus. Date Patient Seen: 02/27/22 Time Patient Seen: 12:50 Exam Vital Signs (past 8 hours): Oxygen Delivery Method Room Air Narrative Exam Narrative: General: Well-appearing female Abdomen: Soft, nontender, nondistended. Dressing is dry, an old blood stained area is marked, without spread. Fundus is nontender Extremities: 3+ left lower extremity edema from foot to knee, becoming mildly softer. 2+ right lower extremity edema. Objective Labs Result Diagrams: 02/26/22 Unknown 02/27/22 06:27 Labs: Laboratory Results - last 24 hr 02/26/22 02/26/22 02/26/22 11:18 12:00 Unknown WBC 17.2 H D RBC 3.64 L Hgb 8.8 L Hct 27.1 L MCV 74.6 L MCH 24.2 L MCHC 32.4 RDW 17.8 H Plt Count 165 Neut % (Auto) 89.7 H Lymph % (Auto) 5.6 L [place] % (Auto) 4.4 Eos % (Auto) 0.1 L Baso % (Auto) 0.2 Neut # (Auto) 70543 H Lymph # (Auto) 1000 L [place] # (Auto) 800 Eos # (Auto) 0 Baso # (Auto) 0 Sodium Potassium Chloride Carbon Dioxide BUN Creatinine Estimated GFR BUN/Creatinine Ratio Glucose Calcium Total Bilirubin AST ALT Alkaline Phosphatase Total Protein Albumin Globulin Albumin/Globulin Ratio U Random Total Protein 43 H Urine Creatinine 261.1 Protein/Creatinin Ratio 0.16 U Opiates 300ng/mL cut Negative Ur Oxycodone Screen Negative Urine Methadone Screen Negative Ur Barbiturates Screen Negative U Tricyclic Antidepress Negative Ur Phencyclidine Scrn Negative Ur Amphetamines Screen Negative U Methamphetamines Scrn Negative Ur MDMA Scrn (Ecstasy) Negative U Benzodiazepines Scrn Negative Urine Cocaine Screen Negative U Marijuana (THC) Screen Positive H 02/27/22 06:27 WBC RBC Hgb Hct MCV MCH MCHC RDW Plt Count Neut % (Auto) Lymph % (Auto) [place] % (Auto) Eos % (Auto) Baso % (Auto) Neut # (Auto) Lymph # (Auto) [place] # (Auto) Eos # (Auto) Baso # (Auto) Sodium 132 L Potassium 4.1 Chloride 103 Carbon Dioxide 23 BUN 11 Creatinine 0.73 Estimated GFR > 60 BUN/Creatinine Ratio 15.1 Glucose 131 H Calcium 8.3 L Total Bilirubin 0.3 AST 26 ALT 15 Alkaline Phosphatase 130 H Total Protein 5.4 L Albumin 2.7 L Globulin 2.7 Albumin/Globulin Ratio 1.0 U Random Total Protein Urine Creatinine Protein/Creatinin Ratio U Opiates 300ng/mL cut Ur Oxycodone Screen Urine Methadone Screen Ur Barbiturates Screen U Tricyclic Antidepress Ur Phencyclidine Scrn Ur Amphetamines Screen U Methamphetamines Scrn Ur MDMA Scrn (Ecstasy) U Benzodiazepines Scrn Urine Cocaine Screen U Marijuana (THC) Screen Assessment & Plan Plan day: 1 Comments: 1.Postop day 1 status post primary and tubal ligation 2. Gestational hypertension Plan: BP is improving. Repeat preeclamptic labs this morning are normal. She is finally starting to diurese late this morning with 200-250 ml urine per void. Ordered furosemide for her, but will hold at this time since she is now beginning to diurese. Johnson discontinued about 1 hour ago, await 1st void. Having normal GI return and normal postsurgical course. Continue routine post /postoperative care and observation of her BP's. Time Spent With Patient Time: Total time spent is greater than 50% in coordination of care (as documented) at patient's floor/unit and/or counseling patient: Time with patient: 15-24 minutes
[2022-02-27] MEDS: HYDROCODONE/ACET 5/325 TABLET 1 TAB PO ×2 (15:21→20:20)
[2022-02-27] MEDS: IBUPROFEN 600 MG TABLET PO (19:31)
[2022-02-27] MEDS: HYDROMORPHONE 2 MG INJ IV (21:24)
[2022-02-28] MEDS: HYDROCODONE/ACET 5/325 TABLET 1 TAB PO ×3 (00:30→08:46)
[2022-02-28] MEDS: IBUPROFEN 600 MG TABLET PO ×2 (01:19→08:45)
[2022-02-28] MEDS: ENOXAPARIN 40 MG/0.4 ML SYRINGE SUBCUT (08:44)
[2022-02-28 08:45] VITALS: TEMP 36.3
[2022-02-28] MEDS: DOCUSATE 100 MG CAPSULE 200 MG PO (08:45)
[2022-02-28 08:46] VITALS: TEMP 36.3
--- NOTE | 2022-02-28 11:47 | P.DS_ITS ---
Discharge Providers Provider Date of admission: 02/26/22 10:42 Discharge Date: 02/28/22 Primary care physician: FLORINA Saldana Consults: 02/26/22 13:54 Consult to Cellophane Worker Routine Comment: Discharge provider: Tatyana Sullivan MD Summary Hospital Course Date Patient Seen: 02/28/22 Time Patient Seen: 10:50 Diagnoses: [id number] day twin delivered Hospital Course: 31 yo female with known twin gestation presented at 36 weeks 6 days in active labor. She had been scheduled for a primary section for the following day, desiring section after counseling of options due to 2nd baby being breech presentation. She desired proceeding with primary section for delivery, With tubal ligation. She was scheduled at 37 weeks for possible mono chorionic, diamniotic twins versus dichorionic diamnionic, as well as onset of gestational hypertension for the 2-3 weeks prior. She had severe lower extremity edema, but labs and urine protein showed no evidence of preeclampsia. With her right lower extremity being significantly worse than her left she did have Doppler evaluation which was negative for DVT one week prior to her delivery.. On the day of her delivery she was transferred by air lift from [facility] son due to onset of labor. She presented 5 cm dilated, desired to proceed with section for delivery and also confirm desired for the tubal ligation at time of delivery. BP's were mildly elevated, only 1 elevation in severe range when she was uncomfortable with contractions and this then decreased after receiving spinal anesthesia. Preeclamptic labs were norm al. She underwent primary lower transverse section with bilateral tubal ligation without complications. See operative note. Inspection placentas revealed probable to separate placentas, dichorionic but there was a small bridge of shared vessel so await final pathology. She has had an uncomplicated postoperative course. She started diuresing in the late morning on postoperative day 1. She has continued to put out large amounts of urine. Her pedal edema is gradually decreasing. She is still having mild elevated BP's, 130 to 140s over 70 to 80s, but no significant BP elevations. She reports an intermittent mild headache, but nothing severe. she has a history of mild headaches. Denies scotomata, upper abdominal discomfort or persistent nausea. She does have some shooting discomfort from her lower abdomen to her back. She passed small amounts of flatus yesterday and reports increased today. No BM yet. Tolerating regular diet, no nausea. She is bottle feeding as she reports lack of milk production with prior pregnancies. She has met normal postoperative parameters. She desires discharge home if able. With BP's overall being good, only mild elevation and repeat labs negative for preeclampsia, will discharge her to home today with follow-up appointment in 1 week for BP check and dressing removal. Peripartum Data Delivery Method: Section complications: none Discharge Diagnosis (1) Status post primary low transverse section: Start Date: 02/28/22 Start Time: 12:31 Status: Acute (2) Twin , delivered by section, current hospitalization: Status: Acute Time Spent with Patient Time attestation: Total time spent providing and/or coordinating discharge services: Objective Labs Result Diagrams: 02/26/22 Unknown 02/27/22 06:27 Exam Vital Signs (past 8 hours): - 02/28/22 08:45 02/28/22 08:46 Temperature 97.3 F L 97.3 F L Oxygen Delivery Method Room Air Narrative Exam Narrative: General: Well-appearing female Abdomen: Soft, obese abdomen, nondistended. expected tenderness near the dressing, otherwise nontender. Dressing with old area of blood staining, small area in the midline, otherwise dry and intact. Fundus nontender Extremities: RLE 2+-3+ pedal edema extends 2/3 up handy, decreasing LLE pedal to handy edema 1-2+ Discharge Plan Discharge Plan Patient Disposition: Home Provider Discharge Comment: 36week 6 day twin , delivered status post primary section and tubal ligation. Discharge orders & Medications Prescriptions: New hydrocodone-acetaminophen 5-325 mg Tablet 1 tab PO Q4HR PRN (Reason: Pain, Moderate (4-6)) Qty: 20 0RF ferrous sulfate 325 mg (65 mg iron) Tablet 325 mg PO DAILY Qty: 30 0RF ibuprofen 600 mg Tablet 600 mg PO Q6HR PRN (Reason: Fever/Mild Pain (1-3)) Qty: 60 0RF docusate sodium 100 mg Capsule 200 mg PO DAILY Qty: 20 0RF hydrochlorothiazide 25 mg tablet 25 mg PO DAILY PRN (Reason: edema) Qty: 3 0RF Rx Instructions: take daily for 3 days if leg edema does not continue to decrease Continued prenat.vits,amy,[id number] Tablet 1 tab PO DAILY nicotine 21 mg/24 hr patch 24 hour 1 patch transdermal DAILY Follow up/Referrals: Tatyana Sullivan MD [Physician] - 1 Week (appt in 1 week for Aquacel removal and BP check) Nohemy Stapleton ARNP [Primary Care Provider] - Discharge Health Status Multidrug resistant organism: No MDRO Diet/Activity/Treatments Diet: Regular Diet comment: increased fiber in your diet to help with constipation Activity: nothing in the vagina for 6 weeks, no tampons and no intercourse. No heavy lifting for 6 weeks. Try to do some walking around the house daily, to prevent blood clots. Do slow walking with your lower blood count. Skin/Wound/Dressing Care Report to your healthcare provider any signs of infection, such as:: chills, fever, increased pain, unusual drainage and unusual redness Dressing: may shower with the dressing in place. The dressing will be removed in the office in 1 week. Visit Report/Discharge Packet Instructions: DI for Discharge Data Primary Care Provider: Nohemy Stapleton
[2022-02-28 14:06] VITALS: BP 138/84; PULSE 95; RESP 16; TEMP 36.3
== END 2022-02-28 15:05 | disposition home or self-care (01) | DRG 539 ==
PROVIDERS: Admitting Provider Obstetrics & Gynecology; PCP Nurse Practitioner Family; Referring Provider Obstetrics & Gynecology; Visit Provider Obstetrics & Gynecology
PROC: 10D00Z1 Extraction of Products of Conception, Low, Open Approach (ICD-10-PCS; CPT 59514; principal; 2022-02-26 12:00)
DX: O13.4 Gestational [pregnancy-induced] hypertension without significant proteinuria, complicating childbirth (principal); Z30.2 Encounter for sterilization; O32.1XX0 Maternal care for breech presentation, not applicable or unspecified; Z3A.37 37 weeks gestation of pregnancy; O30.033 Twin pregnancy, monochorionic/diamniotic, third trimester; Z37.2 Twins, both liveborn; Z20.822 Contact with and (suspected) exposure to COVID-19
CPT/HCPCS: 36415; 58611; 59025; 59050; 59514; 76815; 80053; 80305; 82570; 84156; 84450; 84550; 85025; 86850; 86900; 86901; 87635; C9803; J0131; J1170; J1200; J1650; J1885; J2274; J2405; J2590; J2704; J2765; J3010

== ENCOUNTER 2022-04-10 14:40 | Emergency (ER) | payer OTHER, MEDICAID, SELFPAY ==
[2022-04-10] VITALS (8 sets, daily range): BP systolic 138–153; BP diastolic 85–90; PULSE 74–101; RESP 18–24; TEMP 35.9; O2SAT 97–100; BMI 44.5
[2022-04-10 16:12] LABS: Add Manual Diff / Slide Review SLIDE REVIEW; Basophils Absolute Auto 0 /uL (0-100); Basophils Percent Auto 0.7 % (0-2); Eosinophils Absolute Auto 100 /uL (0-450); Eosinophils Percent Auto 1.9 % (2-4); Lymphocytes Absolute Auto 1400 /uL (1100-4500); Lymphocytes Percent Auto 22.5 % (25-40); Mean Corpuscular HGB Conc 30.7 % (30-36); Mean Corpuscular Volume 68.4 fL (80-100); Monocytes Absolute Auto 400 /uL (0-900); Monocytes Percent Auto 6.5 % (3-14); Neutrophils Absolute Auto 4300 /uL (1500-7000); Neutrophils Percent Auto 68.4 % (50-75); Platelet Count 252 X10^3/uL (150-400); Red Blood Cell Count 3.81 X10^6/uL (4.0-5.2); Red Cell Distribution Width 19.5 % (11.6-14.8); White Blood Cell Count 6.4 X10^3/uL (4.5-11.0)
[2022-04-10 16:16] LABS: Alanine Aminotransferase 52 IU/L (<35); Albumin 4.2 g/dL (3.5-5.0); Albumin Globulin Ratio 1.2 (1.0-2.8); Alkaline Phosphatase 117 U/L (38-126); Aspartate Aminotransferase 52 IU/L (14-36); BUN Creatinine Ratio 11.8 (6-22); Bilirubin Total 0.5 mg/dL (0.2-1.3); Blood Urea Nitrogen 8 mg/dL (7-17); Calcium 8.8 mg/dL (8.4-10.2); Carbon Dioxide 25 mmol/L (22-32); Chloride 105 mmol/L (98-107); Estimated Glomerular Filt Rate > 60 mL/min (>60); Globulin 3.4 g/dL (1.7-4.1); Glucose 99 mg/dL (70-100); HEMOLYSIS 32 (0-50); Sodium 141 mmol/L (137-145); Total Protein 7.6 g/dL (6.3-8.2)
[2022-04-10 16:38] LABS: Anisocytosis 2+; Microcytosis 2+
[2022-04-10 16:39] LABS: Hypochromasia 2+
--- NOTE | 2022-04-10 17:34 | DI.US.S_ITS ---
PROCEDURE: US PELVIC COMPLETE INDICATIONS: Vaginal bleeding TECHNIQUE: Real-time scanning was performed of the pelvic organs, with image documentation. Additional endovaginal scanning was necessary due to incomplete visualization of the adnexal and endometrial structures by transabdominal scanning. COMPARISON: None. FINDINGS: Uterus: Uterus is vertically oriented and at the upper limits of normal in size at 9.9 x 5.2 x 6.8 cm. The myometrium is heterogeneous. The endometrium is not well-defined but not significantly thickened. No visible endometrial mass or fluid collection. No dominant myometrial masses. There is a lower anterior myometrial linear hypoechogenicity consistent with prior scar. Normal to mildly increased vascularity throughout the uterus. Ovaries: The right ovary measures 4.5 x 2.6 x 3 point cm, with a calculated ovarian volume of 18.7 cc. The left ovary measures 3.0 x 2.2 x 1.9 cm, with a calculated ovarian volume of 6.5 cc. The ovaries have a normal sonographic appearance. Less than 12 follicles can be seen in each ovary. No adnexal masses are seen. Other: No pathologic free abdominal or pelvic fluid. IMPRESSION: 1. Uterine appearance consistent with recent and . 2. No increased endometrial vascularity or mass to suggest retained products of conception. 3. Heterogeneous uterus raises the possibility of adenomyosis. We strive to produce accurate, complete, and clear reports of imaging services. To assist us in improving patient care, this report was composed using standard report templates and voice recognition software. Therefore, it may contain abnormal punctuation, insertions and/or omissions. Occasional wrong-word or sound-alike substitutions may occur. Though we review the report and make efforts to correct it, we do recommend that the report be read carefully in proper context to recognize any text inaccuracies. Dictated by: Maine Goins M.D. on 04/10/2022 at 19:14 Approved by: Maine Goins M.D. on 04/10/2022 at 19:20
[2022-04-10 18:00] LABS: Bacteria Urine Occasional (0-1); RBC Urine >100/HPF (0-5/HPF); Squamous Epithelial Cell Urine 1-5 /HPF (0-5/HPF); WBC Urine 0-1/HPF (0-5/HPF)
[2022-04-10 18:04] LABS: Pregnancy Test Urine Negative (Negative)
--- NOTE | 2022-04-10 18:39 | ED.FEMALEGU ---
HPI - Female Genitourinary <Tom Farfan PA-C - Last Filed: 04/10/22 19:44> General Chief complaint: Urogenital-Female Stated complaint: bleeding/weak post c section 6 weeks ago Time Seen by Provider: 04/10/22 16:50 History of Present Illness HPI Narrative: This is a 31-year-old female presents emergency department due to a 2 day history of vaginal bleeding. Patient states she is ?bleeding a lot? roughly going through roughly 1 pad an hour. Also states that she is a somewhat lightheaded when she stands up too quickly and feels somewhat weak. Patient is 6 weeks post with twins with Dr. Sullivan. Denies any vaginal discharge or acute abdominal pain or vaginal pain. Denies dysuria. Related Data Home Medications Medication Instructions Recorded Confirmed nicotine 21 mg/24 hr daily 1 patch transdermal DAILY 09/30/21 03/05/22 transdermal patch prenat.vits,amy,txs-hegu-gsafq 1 tab PO DAILY 09/30/21 03/05/22 Previous Rx's Medication Instructions Recorded docusate sodium 100 mg capsule 200 mg PO DAILY #20 caps 02/28/22 ferrous sulfate 325 mg (65 mg 325 mg PO DAILY #30 tabs 02/28/22 iron) tablet hydrocodone 5 mg-acetaminophen 325 1 tab PO Q4HR PRN Pain, Moderate 02/28/22 mg tablet (4-6) #20 tabs ibuprofen 600 mg tablet 600 mg PO Q6HR PRN Fever/Mild Pain 02/28/22 (1-3) #60 tabs furosemide 20 mg tablet 20 mg PO DAILY #5 tabs 03/05/22 Allergies Allergy/AdvReac Type Severity Reaction Status Date / Time Penicillins Allergy Mild Rash Verified 03/05/22 11:20 Review of Systems <Tom Farfan PA-C - Last Filed: 04/10/22 19:44> Review of Systems Narrative: GENERAL: Denies chills, fatigue, malaise, fever, sweats. HEENT: Denies sinus pain, ear pain, sore throat, difficulty swallowing, dizziness. RESPIRATORY: Denies dyspnea, cough, wheezing, hemoptysis, sputum. CARDIOVASCULAR: Denies chest pain, palpitations, orthopnea, edema, GASTROINTESTINAL: Denies nausea, vomiting, abdominal pain, diarrhea, constipation, melena. : Reports vaginal bleeding, Denies dysuria, frequency, incontinence, hematuria, urinary retention. MUSCULOSKELETAL: denies weakness, joint pain, or bony pain SKIN: Denies rash, skin lesions, or other NEUROLOGIC: Denies weakness, headache, numbness, change in speech, confusion, seizures, incoordination. PSYCHIATRIC: No concerning psychosocial issues. 12 point review of systems is negative except for those stated above Patient History <Tom Farfan PA-C - Last Filed: 04/10/22 19:44> Medical History Anxiety Chronic back pain Depression History of bipolar disorder History of methamphetamine abuse Migraines PTSD (post-traumatic stress disorder) Twin , mate liveborn Surgical History Anesthesia History of oral surgery (~10/26/15) Family History Father Diabetes mellitus Hyperlipidemia Cancer Mental health problem Brother Cerebral palsy Substance Use Type: marijuana Exam <Tom Farfan PA-C - Last Filed: 04/10/22 19:44> Narrative Exam Narrative: GENERAL: Well-developed patient, in mild distress. HEAD: Atraumatic. Normocephalic. EYES: Pupils equal round and reactive. Extraocular motions intact. No scleral icterus. No injection or drainage. ENT: Nose without bleeding, purulent drainage. Throat without erythema, tonsillar hypertrophy or exudate. Airway patent. NECK: Trachea midline. Non tender CARDIOVASCULAR: Regular rate and rhythm without murmurs, gallops, or rubs. RESPIRATORY: Clear to auscultation. Breath sounds equal bilaterally. No wheezes, rales, or rhonchi. GASTROINTESTINAL: Abdomen soft, non-tender, nondistended. EXTREMITIES: No edema or joint tenderness. BACK: Nontender without deformity or crepitance. No flank tenderness. NEURO: AOx3. 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 Some blood noted in the vaginal vault but no active bleeding. Cervical os appears closed. No vaginal purulent discharge. Initial Vital Signs Initial Vital Signs: Vital Signs Temperature 96.7 F L 04/10/22 14:46 Pulse Rate 87 04/10/22 14:46 Respiratory Rate 20 04/10/22 14:46 Blood Pressure 138/90 04/10/22 14:46 Pulse Oximetry 100 04/10/22 14:46 Oxygen Delivery Method 04/10/22 14:46 <Manisha Gan DO - Last Filed: 04/11/22 09:00> Initial Vital Signs Initial Vital Signs: Vital Signs Temperature 96.7 F L 04/10/22 14:46 Pulse Rate 87 04/10/22 14:46 Respiratory Rate 20 04/10/22 14:46 Blood Pressure 138/90 04/10/22 14:46 Pulse Oximetry 100 04/10/22 14:46 Oxygen Delivery Method 04/10/22 14:46 Course <Tom Farfan PA-C - Last Filed: 04/10/22 19:44> Orders Ordered: ED Orders 04/10/22 15:15 CMP [Comprehensive Metabolic Panel] Stat Complete Blood Count AUTO DIFF Stat 04/10/22 17:34 US pelvic complete Stat 04/10/22 17:43 Test Urine Stat Urine Culture Stat Urine Microscopic Stat Vital Signs Vital signs: Vital Signs - 8 hr 04/10/22 14:46 04/10/22 16:39 04/10/22 17:00 Temperature 96.7 F L Pulse Rate 87 74 80 Respiratory Rate 20 18 Blood Pressure 138/90 Pulse Oximetry 100 97 Oxygen Delivery Method Room Air 04/10/22 17:30 04/10/22 18:00 04/10/22 18:57 Temperature Pulse Rate 85 101 H 86 Respiratory Rate 24 18 18 Blood Pressure 151/85 H Pulse Oximetry 99 100 98 Oxygen Delivery Method Room Air 04/10/22 18:54 04/10/22 18:55 04/10/22 18:55 Temperature Pulse Rate 87 84 Respiratory Rate Blood Pressure 153/85 H Pulse Oximetry 98 98 Oxygen Delivery Method <Manisha Gan DO - Last Filed: 04/11/22 09:00> Orders Ordered: ED Orders 04/10/22 15:15 CMP [Comprehensive Metabolic Panel] Stat Complete Blood Count AUTO DIFF Stat 04/10/22 17:34 US pelvic complete Stat 04/10/22 17:43 Test Urine Stat Urine Culture Stat Urine Microscopic Stat Vital Signs Vital signs: Vital Signs - 8 hr 04/10/22 14:46 04/10/22 16:39 04/10/22 17:00 Temperature 96.7 F L Pulse Rate 87 74 80 Respiratory Rate 20 18 Blood Pressure 138/90 Pulse Oximetry 100 97 Oxygen Delivery Method Room Air 04/10/22 17:30 04/10/22 18:00 04/10/22 18:57 Temperature Pulse Rate 85 101 H 86 Respiratory Rate 24 18 18 Blood Pressure 151/85 H Pulse Oximetry 99 100 98 Oxygen Delivery Method Room Air 04/10/22 18:54 04/10/22 18:55 04/10/22 18:55 Temperature Pulse Rate 87 84 Respiratory Rate Blood Pressure 153/85 H Pulse Oximetry 98 98 Oxygen Delivery Method MDM - Female Genitourinary <Tom Farfan PA-C - Last Filed: 04/10/22 19:44> Lab Data Result diagrams: 04/10/22 15:15 04/10/22 15:15 Labs: Lab Results 04/10/22 04/10/22 04/10/22 Range/Units 15:15 15:15 17:43 WBC 6.4 (4.5-11.0) X10^3/uL RBC 3.81 L (4.0-5.2) X10^6/uL Hgb 8.0 L (12.0-16.0) g/dL Hct 26.0 L (36-46) % MCV 68.4 L (80-100) fL MCH 21.0 L (26-34) PG MCHC 30.7 (30-36) % RDW 19.5 H (11.6-14.8) % Plt Count 252 (150-400) X10^3/uL Neut % (Auto) 68.4 (50-75) % Lymph % (Auto) 22.5 L (25-40) % Curry % (Auto) 6.5 (3-14) % Eos % (Auto) 1.9 L (2-4) % Baso % (Auto) 0.7 (0-2) % Neut # (Auto) 4300 (8704-2207) /uL Lymph # (Auto) 1400 (9146-9624) /uL Curry # (Auto) 400 (0-900) /uL Eos # (Auto) 100 (0-450) /uL Baso # (Auto) 0 (0-100) /uL RBC Morphology See below Hypochromasia 2+ H Anisocytosis 2+ H Microcytosis 2+ H Sodium 141 (137-145) mmol/L Potassium 4.0 (3.4-5.1) mmol/L Chloride 105 (98-107) mmol/L Carbon Dioxide 25 (22-32) mmol/L BUN 8 (7-17) mg/dL Creatinine 0.68 (0.52-1.04) mg/dL Estimated GFR > 60 (>60) mL/min BUN/Creatinine Ratio 11.8 (6-22) Glucose 99 (70-100) mg/dL Calcium 8.8 (8.4-10.2) mg/dL Total Bilirubin 0.5 (0.2-1.3) mg/dL AST 52 H (14-36) IU/L ALT 52 H (<35) IU/L Alkaline Phosphatase 117 (38-126) U/L Total Protein 7.6 (6.3-8.2) g/dL Albumin 4.2 (3.5-5.0) g/dL Globulin 3.4 (1.7-4.1) g/dL Albumin/Globulin Ratio 1.2 (1.0-2.8) Urine RBC >100/hpf H (0-5/HPF) Urine WBC 0-1/hpf (0-5/HPF) Ur Squamous Epith Cells 1-5 /hpf (0-5/HPF) Urine Bacteria Occasional (0-1) (None) Ur Culture Indicated? Culture not indicate Urine Test (Negative) 04/10/22 Range/Units 17:43 WBC (4.5-11.0) X10^3/uL RBC (4.0-5.2) X10^6/uL Hgb (12.0-16.0) g/dL Hct (36-46) % MCV (80-100) fL MCH (26-34) PG MCHC (30-36) % RDW (11.6-14.8) % Plt Count (150-400) X10^3/uL Neut % (Auto) (50-75) % Lymph % (Auto) (25-40) % Curry % (Auto) (3-14) % Eos % (Auto) (2-4) % Baso % (Auto) (0-2) % Neut # (Auto) (4874-8467) /uL Lymph # (Auto) (4060-9712) /uL Curry # (Auto) (0-900) /uL Eos # (Auto) (0-450) /uL Baso # (Auto) (0-100) /uL RBC Morphology Hypochromasia Anisocytosis Microcytosis Sodium (137-145) mmol/L Potassium (3.4-5.1) mmol/L Chloride (98-107) mmol/L Carbon Dioxide (22-32) mmol/L BUN (7-17) mg/dL Creatinine (0.52-1.04) mg/dL Estimated GFR (>60) mL/min BUN/Creatinine Ratio (6-22) Glucose (70-100) mg/dL Calcium (8.4-10.2) mg/dL Total Bilirubin (0.2-1.3) mg/dL AST (14-36) IU/L ALT (<35) IU/L Alkaline Phosphatase (38-126) U/L Total Protein (6.3-8.2) g/dL Albumin (3.5-5.0) g/dL Globulin (1.7-4.1) g/dL Albumin/Globulin Ratio (1.0-2.8) Urine RBC (0-5/HPF) Urine WBC (0-5/HPF) Ur Squamous Epith Cells (0-5/HPF) Urine Bacteria (None) Ur Culture Indicated? Urine Test Negative (Negative) Urine Dip Bedside Urine Glucose Negative Bedside Urine Bilirubin - Negative Bedside Urine Ketone - Negative Urine Specific Morning Sun 1.020 Bedside Urine Occult Blood +++ Bedside Urine pH 6.0 Bedside Urine Protein + 30 Bedside Urine Urobilinogen - Negative Bedside Urine Nitrite - Negative Bedside Urine Leukocytes + 70 Esterase Imaging Data US - [facility]: Radiologist's Impression: [address] [address] Ultrasound Report Signed Patient: Alyce Carter MR#: [id number] : 1990 Acct:[id number] Age/Sex: 31 / F Date of Service: 04/10/22 Loc: ED Accession Number: [id number] ?? Procedure: US pelvic complete Ordering Provider: Tom Farfan P.A-C PROCEDURE:? US PELVIC COMPLETE ? INDICATIONS:? Vaginal bleeding ? TECHNIQUE:? Real-time scanning was performed of the pelvic organs, with image documentation.? Additional endovaginal scanning was necessary due to incomplete visualization of the adnexal and endometrial structures by transabdominal scanning.? ? COMPARISON:? None. ? FINDINGS:? ?? Uterus:? Uterus is vertically oriented and at the upper limits of normal in size at 9.9 x 5.2 x 6.8 cm. The myometrium is heterogeneous. ? The endometrium is not well-defined but not significantly thickened.? No visible endometrial mass or fluid collection.? No dominant myometrial masses.? There is a lower anterior myometrial linear hypoechogenicity consistent with prior scar.? Normal to mildly increased vascularity throughout the uterus. ? Ovaries:? The right ovary measures 4.5 x 2.6 x 3 point cm, with a calculated ovarian volume of 18.7 cc. The left ovary measures 3.0 x 2.2 x 1.9 cm, with a calculated ovarian volume of 6.5 cc. The ovaries have a normal sonographic appearance. Less than 12 follicles can be seen in each ovary.? No adnexal masses are seen. ? Other:? No pathologic free abdominal or pelvic fluid. ? ? IMPRESSION:? ? 1. Uterine appearance consistent with recent and . ? 2. No increased endometrial vascularity or mass to suggest retained products of conception. ? 3. Heterogeneous uterus raises the possibility of adenomyosis.? We strive to produce accurate, complete, and clear reports of imaging services. To assist us in improving patient care, this report was composed using standard report templates and voice recognition software. Therefore, it may contain abnormal punctuation, insertions and/or omissions. Occasional wrong-word or sound-alike substitutions may occur. Though we review the report and make efforts to correct it, we do recommend that the report be read carefully in proper context to recognize any text inaccuracies. ? ? Dictated by: Maine Goins M.D. on 04/10/2022 at 19:14 ? ? Approved by: Maine Goins M.D. on 04/10/2022 at 19:20 ? MDM Narrative Medical decision making narrative: This is a 31-year-old female presents to the emergency department for concerns of vaginal bleeding. Patient states that she is but mildly woozy and weak as well. Patient had a approximately 6 weeks ago but missed her scheduled appointment with her OB yesterday. Lab work showed a hemoglobin of 8 which was significant although record view patient does appear to be anemic chronically. Pelvic ultrasound showed no concerning acute findings. Pelvic exam was performed which showed blood in the vaginal vault but no bleeding coming from. Patient was very eager to the home for the last very strongly recommended she follow up with her OB as soon as possible for further evaluation. Patient's vitals within normal limits. <Manisha Malik, DO - Last Filed: 04/11/22 09:00> Lab Data Labs: Lab Results 04/10/22 04/10/22 04/10/22 Range/Units 15:15 15:15 17:43 WBC 6.4 (4.5-11.0) X10^3/uL RBC 3.81 L (4.0-5.2) X10^6/uL Hgb 8.0 L (12.0-16.0) g/dL Hct 26.0 L (36-46) % MCV 68.4 L (80-100) fL MCH 21.0 L (26-34) PG MCHC 30.7 (30-36) % RDW 19.5 H (11.6-14.8) % Plt Count 252 (150-400) X10^3/uL Neut % (Auto) 68.4 (50-75) % Lymph % (Auto) 22.5 L (25-40) % Curry % (Auto) 6.5 (3-14) % Eos % (Auto) 1.9 L (2-4) % Baso % (Auto) 0.7 (0-2) % Neut # (Auto) 4300 (1320-8160) /uL Lymph # (Auto) 1400 (2080-4056) /uL Curry # (Auto) 400 (0-900) /uL Eos # (Auto) 100 (0-450) /uL Baso # (Auto) 0 (0-100) /uL RBC Morphology See below Hypochromasia 2+ H Anisocytosis 2+ H Microcytosis 2+ H Sodium 141 (137-145) mmol/L Potassium 4.0 (3.4-5.1) mmol/L Chloride 105 (98-107) mmol/L Carbon Dioxide 25 (22-32) mmol/L BUN 8 (7-17) mg/dL Creatinine 0.68 (0.52-1.04) mg/dL Estimated GFR > 60 (>60) mL/min BUN/Creatinine Ratio 11.8 (6-22) Glucose 99 (70-100) mg/dL Calcium 8.8 (8.4-10.2) mg/dL Total Bilirubin 0.5 (0.2-1.3) mg/dL AST 52 H (14-36) IU/L ALT 52 H (<35) IU/L Alkaline Phosphatase 117 (38-126) U/L Total Protein 7.6 (6.3-8.2) g/dL Albumin 4.2 (3.5-5.0) g/dL Globulin 3.4 (1.7-4.1) g/dL Albumin/Globulin Ratio 1.2 (1.0-2.8) Urine RBC >100/hpf H (0-5/HPF) Urine WBC 0-1/hpf (0-5/HPF) Ur Squamous Epith Cells 1-5 /hpf (0-5/HPF) Urine Bacteria Occasional (0-1) (None) Ur Culture Indicated? Culture not indicate Urine Test (Negative) 04/10/22 Range/Units 17:43 WBC (4.5-11.0) X10^3/uL RBC (4.0-5.2) X10^6/uL Hgb (12.0-16.0) g/dL Hct (36-46) % MCV (80-100) fL MCH (26-34) PG MCHC (30-36) % RDW (11.6-14.8) % Plt Count (150-400) X10^3/uL Neut % (Auto) (50-75) % Lymph % (Auto) (25-40) % Curry % (Auto) (3-14) % Eos % (Auto) (2-4) % Baso % (Auto) (0-2) % Neut # (Auto) (3104-1297) /uL Lymph # (Auto) (5445-2181) /uL Curry # (Auto) (0-900) /uL Eos # (Auto) (0-450) /uL Baso # (Auto) (0-100) /uL RBC Morphology Hypochromasia Anisocytosis Microcytosis Sodium (137-145) mmol/L Potassium (3.4-5.1) mmol/L Chloride (98-107) mmol/L Carbon Dioxide (22-32) mmol/L BUN (7-17) mg/dL Creatinine (0.52-1.04) mg/dL Estimated GFR (>60) mL/min BUN/Creatinine Ratio (6-22) Glucose (70-100) mg/dL Calcium (8.4-10.2) mg/dL Total Bilirubin (0.2-1.3) mg/dL AST (14-36) IU/L ALT (<35) IU/L Alkaline Phosphatase (38-126) U/L Total Protein (6.3-8.2) g/dL Albumin (3.5-5.0) g/dL Globulin (1.7-4.1) g/dL Albumin/Globulin Ratio (1.0-2.8) Urine RBC (0-5/HPF) Urine WBC (0-5/HPF) Ur Squamous Epith Cells (0-5/HPF) Urine Bacteria (None) Ur Culture Indicated? Urine Test Negative (Negative) Urine Dip Bedside Urine Glucose Negative Bedside Urine Bilirubin - Negative Bedside Urine Ketone - Negative Urine Specific Morning Sun 1.020 Bedside Urine Occult Blood +++ Bedside Urine pH 6.0 Bedside Urine Protein + 30 Bedside Urine Urobilinogen - Negative Bedside Urine Nitrite - Negative Bedside Urine Leukocytes + 70 Esterase Discharge Plan Departure Patient Disposition: Home Clinical Impression: Vaginal bleeding Activity Restrictions/Additional Instructions: Thank you for coming to the [facility] Emergency Department today. The pelvic exam was reassuring as well as her blood work. I recommend he drink plenty of fluids and follow up with her OB provider tomorrow for further discussion and follow-up on your vaginal bleeding. The vaginal ultrasound was reassuring and showed no acute emergent processes. Did show findings concerning for possible adenomyosis. Please follow-up with your OB about this. I hope you feel better soon. Prescriptions: No Action prenat.vits,amy,lnm-enhi-miurg Tablet 1 tab PO DAILY nicotine 21 mg/24 hr patch 24 hour 1 patch transdermal DAILY furosemide 20 mg tablet 20 mg PO DAILY Qty: 5 0RF hydrocodone-acetaminophen 5-325 mg Tablet 1 tab PO Q4HR PRN (Reason: Pain, Moderate (4-6)) Qty: 20 0RF ferrous sulfate 325 mg (65 mg iron) Tablet 325 mg PO DAILY Qty: 30 0RF ibuprofen 600 mg Tablet 600 mg PO Q6HR PRN (Reason: Fever/Mild Pain (1-3)) Qty: 60 0RF docusate sodium 100 mg Capsule 200 mg PO DAILY Qty: 20 0RF Referrals: Nohemy Stapleton ARNP [Primary Care Provider] - Visit Report Forms: Patient Portal/API <Manisha Gan DO - Last Filed: 04/11/22 09:00> Cosign ED Attending Mary Kay Attestation: I was immediately available in the department for consultation. Documentation has been reviewed. I agree with assessment and plan.
--- NOTE | 2022-04-10 19:02 | PC.NURSE ---
Hair Cutter for pelvic exam. Pt tolerated procedure well. Given fresh briefs and pad for maikol care.
== END 2022-04-10 19:36 | disposition home or self-care (01) ==
PROVIDERS: Emergency Medicine; Emergency Provider Physician Assistant Medical; PCP Nurse Practitioner Family
DX: N93.9 Abnormal uterine and vaginal bleeding, unspecified (principal)
CPT/HCPCS: 76830; 76856; 80053; 81003; 81015; 81025; 85025; 87086; 99283; 99284

== ENCOUNTER → 2024-05-11 12:27 | Outpatient (CLI) | payer OTHER, SELFPAY ==
--- NOTE | 2024-05-11 12:34 | DI.RAD.S_ITS ---
PROCEDURE: XR LUMBAR SPINE 2-3V INDICATIONS: Low back pain, unspecified TECHNIQUE: 3 views of the lumbar spine were acquired. COMPARISON: None. FINDINGS: Lumbar spine curvature and alignment: Normal. Bones: There are no osseous abnormalities. Disc spaces: Moderate L4-5 and L5-S1 degenerative disc and facet disease appreciated. Soft tissues: No soft tissue swelling, calcification or mass. IMPRESSION: Normal lumbar spine. Dictated by Ilan Friedman MD 05/12/2024 12:06 p.m. Approved by: Ilan Friedman M.D. on 05/12/2024 at 12:06
== END ==
LOC: RAD 12:32
PROVIDERS: PCP Family Medicine; Referring Provider Internal Medicine Cardiovascular Disease; Visit Provider Internal Medicine Cardiovascular Disease
DX: M54.50 Low back pain, unspecified (principal)
CPT/HCPCS: 72100